=== PATIENT | male | born 1960 ===

== ENCOUNTER 2018-12-31 18:07 | Emergency (ER) | payer OTHER ==
[~2018-12-31] VITALS: Ht 170.2 cm; Wt 66.4 kg
[2018-12-31 19:11] LABS: AMPHET/METH SCREEN,URINE POSITIVE (NEGATIVE); BARBITURATE SCREEN, URINE NEGATIVE (NEGATIVE); BENZODIAZEPINES SCREEN,URINE NEGATIVE (NEGATIVE); CANNABINOID SCREEN,URINE NEGATIVE (NEGATIVE); COCAINE SCREEN,URINE NEGATIVE (NEGATIVE); METHADONE SCREEN, URINE NEGATIVE (NEGATIVE); OPIATE SCREEN,URINE NEGATIVE (NEGATIVE)
[2018-12-31 19:14] LABS: PHENCYCLIDINE SCREEN,URINE NEGATIVE (NEGATIVE)
[2018-12-31 22:53] VITALS: BP 129/76
== END 2018-12-31 23:45 | disposition home or self-care (01) ==
LOC: EMS 18:08
DX: F15.10 Other stimulant abuse, uncomplicated (principal); T50.995A Adverse effect of other drugs, medicaments and biological substances, initial encounter; I10 Essential (primary) hypertension; F17.210 Nicotine dependence, cigarettes, uncomplicated; Z79.899 Other long term (current) drug therapy; Y92.89 Other specified places as the place of occurrence of the external cause
CPT/HCPCS: 93005